=== PATIENT | female | born 1990 | race Caucasian/White ===

== ENCOUNTER 2025-01-19 14:57 | Emergency (ER) | payer OTHER, SELFPAY ==
--- NOTE | ~2025-01-19 | XR_ITS ---
XR tibia fibula LT 2V Ordering provider: Wanda Huff MD History: . left proximal leg pain . Comparison: None. FINDINGS: BONES: Fracture of the distal fibula. Fracture of the posterior malleolus of the left tibia. JOINT SPACES: Normal. SOFT TISSUES: Soft tissue swelling over the medial and lateral malleoli. IMPRESSION: Fracture of the posterior malleolus of the left tibia and the lateral malleolus the fibula. Reviewed, dictated and finalized at location A.
--- NOTE | ~2025-01-19 | XR_ITS ---
EXAM: XR ankle LT min 3V DATE: 01/19/2025 15:15 HISTORY: injury, pain, swelling . COMPARISON: None available. FINDINGS: Medial gutter widening. Oblique nondisplaced fracture of the distal left fibula, extending to the joint line (Yeh type B fracture). Mildly displaced posterior malleolar fracture. Plantar en thesopathy ankle joint effusion. Soft tissue swelling about the ankle. No lytic or blastic lesions. N o erosion or periosteal change. IMPRESSION: . Unstable trimalleolar left ankle injury involving medial ligamentous injury and lateral/posterior oss eous injury. Reviewed, dictated and finalized at location K. IMPRESSION: . Unstable trimalleolar left ankle injury involving medial ligamentous injury and lateral/posterior osseous injury.
[2025-01-19 15:02] VITALS: BP 139/96; PULSE 87; RESP 18; TEMP 36.8; O2SAT 99
[2025-01-19] MEDS: oxyCODONE/ACETAMINOPHEN (*CRX) 5-325 MG TABLET 1 TABLET PO (16:32)
--- NOTE | 2025-01-19 16:37 | ED_ITS ---
HPI - Extremity Injury (Lower) General Chief Complaint: Extremity Injury, Lower Stated Complaint: L ankle Time Seen by Provider: 01/19/25 15:58 Source: patient, RN notes reviewed and old records reviewed Mode of arrival: ambulatory Limitations: no limitations History of Present Illness HPI Narrative: This is a 34 year old female who presents for evaluation of left ankle pain. She states she fell while mowing the grass. She is not sure exactly how she injured her leg but she reports left ankle pain and swelling. She also has pain to left lateral knee. She denies hitting her head. She took ibuprofen prior to her fall. Related Data Allergies Allergy/AdvReac Type Severity Reaction Status Date / Time amoxicillin Allergy Unknown Unknown Verified 01/19/25 14:58 clindamycin Allergy Unknown hives Verified 01/19/25 14:58 Cat Dander Allergy Unknown Unknown Uncoded 01/19/25 14:58 [facility] Past Medical History Medical History (Updated 01/19/25 @ 17:45 by Wanda Huff MD) Patient denies medical problems Surgical History Surgical History (Updated 01/19/25 @ 16:42 by Wanda Huff MD) No pertinent past surgical history Social History Social History (Updated 01/19/25 @ 16:42 by Wanda Huff MD) Smoking status: Never smoker Exam Const: General: no acute distress and alert Orientation/consciousness: patient oriented x3 HENMT: Head: normal to inspection Resp: Effort & Inspection: normal respiratory effort Skin: Other: abrasion to right knee but no swelling Neuro: General: patient oriented x3 and moves all extremities Extrem: Other: left ankle with swelling medial and lateral malleolus. TTP, sensation intact. unable to move foot due to pain and instability; TTP proximal fibula Psych: Mental Status: mental status grossly normal Affect: normal affect Attitude: cooperative Course Consultations Consultation #1: I Spoke with Dr. Wilson . He reviewed patient's images and he agrees with plan to splint and follow up as outpatient. Date: 01/19/25 Time: 16:53 Vital Signs Vital signs: Vital Signs Temperature 98.3 F 01/19/25 15:02 Pulse Rate 87 01/19/25 15:02 Respiratory Rate 18 01/19/25 15:02 Blood Pressure 139/96 H 01/19/25 15:02 Pulse Oximetry 99 01/19/25 15:02 Temperature 98.0 F 01/19/25 18:15 Pulse Rate 83 01/19/25 18:15 Respiratory Rate 16 01/19/25 18:15 Blood Pressure 123/71 01/19/25 18:15 Pulse Oximetry 100 01/19/25 18:15 Procedures Orthopedic Splinting/Casting Injury #1: Splinting/Casting Date: 01/19/25 Splinting/Casting Time: 17:42 Side: left Lower Extremity Injury Location: ankle Splint: customized in ED OCL: stirrup Pre-Procedure Neuro Vascular Exam: normal Post-Procedure Neuro Vascular Exam: normal Other Orthopedic Equipment: crutches MDM - Extremity Injury (Lower) Differential Diagnosis Differential diagnosis: Likely ankle sprain and strain, acute internal derangement of knee and ankle fracture Imaging Data Radiologist's impression: ITS Impressions Ankle X-Ray 01/19/25 15:23 IMPRESSION: . Unstable trimalleolar left ankle injury involving medial ligamentous injury and lateral/posterior osseous injury. Tibia/Fibula X-Ray 01/19/25 16:31 IMPRESSION: Fracture of the posterior malleolus of the left tibia and the lateral malleolus the fibula. Discharge Plan Discharge Clinical Impression: Bimalleolar fracture of left ankle Qualifiers: Encounter type: initial encounter Fracture type: closed Qualified Code(s): S82.842A - Displaced bimalleolar fracture of left lower leg, initial encounter for closed fracture Patient Disposition: Home Condition: Stable Instructions: Ankle Fracture (ED), Crutch Instructions (ED) Additional Instructions: Today you were found to have a fractured ankle . You will need to call Dr. Wilson's office to make an appointment as you likely need to have surgery. Do not bear weight to the left ankle. Elevate leg when possible. Apply ice to reduce swelling Patient Language: Estonian Prescriptions: New oxycodone-acetaminophen [Percocet] 5-325 mg tablet 1 tablet PO Q6H PRN (Reason: pain) Qty: 20 0RF Follow-up/Referrals: Bryon,Nicole Brown MD [Primary Care Provider] - Tahir Wilson MD [Physician] -
--- OUTSIDE RECORDS SUMMARY | 2025-01-19 16:51 | XMS_ITS | Clinical Summary ---
Author Organization [facility] Address [address] [place] [id number] Care Team Providers Care Technical Support Consultant Name Role Phone Unavailable Primary Care Provider Unavailabl e Allergies Active Allergy Reactions Criticality Noted Date Comments Amoxicillin Nausea and Vomiting Low 11/14/2012 Azithromycin Hives High 11/18/2020 Clindamycin Angioedema,Rash High 04/24/2013 Medications norethindrone 1.5 mg-ethinyl estradioL 30 mcg(21)/iron 75 mg(7) tablet Take 1 Tablet by mouth daily. Active QUEtiapine (SEROquel) 25 mg tablet TAKE 1 TABLET BY MOUTH NIGHTLY AT BEDTIME FOR 2 WEEKS THEN MAY INCREASE TO 2 TABS NIGHTLY 09/12/2022 Active Active Problems No known active problems Immunizations Immunization Administration Dates Next Due INFLUENZA VACCINE QUADRIVALENT 6 MOS UP PF IM Family History Medical History Relation Name Comments Cancer Father Hypertension Father Diabetes Mother Relation Name Status Comments Father Mother Social History Tobacco Use Types Packs/Day Years Used Date Smoking Tobacco: Never Smokeless Tobacco: Never Tobacco Cessation:Counseling Given: Not Answered Alcohol Use Standard Drinks/Week Comments Yes 0 (1 standard drink = 0.6 oz pur e alcohol) rarely Comments No Sex and Gender Information Value Date Recorded Sex Assigned at Not on file Legal Sex Female 11:08 AM CDT Gender Identity Not on file Sexual Orientation Not on file Last Filed Vital Signs Vital Sign Reading Time Taken Comments Blood Pressure 106/70 12/04/2022 10:31 AM CDT Pulse 82 12/04/2022 10:31 AM CDT Temperature 36.7 C (98.1 F) 12/04/2022 10:31 AM CDT Respiratory Rate 18 01/21/2021 11:01 AM CDT Oxygen Saturation 98% 12/04/2022 10:31 AM CDT Inhaled Oxygen Concentration - - Weight 81.6 kg (180 lb) 12/04/2022 10:31 AM CDT Height 160 cm (5' 3) 12/04/2022 10:31 AM CDT Body Mass Index 31.89 12/04/2022 10:31 AM CDT Plan of Treatment Health Maintenance Due Date Last Done Comments HPV VACCINES (2 - 3-dose series) 08/05/2007 07/08/20 07 HPV/Cotest (21-29) 12/14/2012 CERVICAL CANCER SCREENING 12/14/2021 HPV/Cotest (30-65) 12/14/2021 PAP SMEAR 12/14/2021 INFLUENZA VACCINE (#1) 2024 , 05/16/2020, 05/14/2019, Additional history exists COVID-19 Vaccine (2023-2 5 season) 2024 11/30/2020, 11/09/2020 DTAP/TDAP/TD VACCINES (4 - T d or Tdap) 01/01/2028 12/31/2017, 07/08/2007, 12/30/1996, Additional history exists HEPATITIS B VACCINES Completed 09/04/2002, 02/09/1997, 01/02/1997 Insurance BLUE ACCESS CHOICE
[2025-01-19 18:15] VITALS: BP 123/71; PULSE 83; RESP 16; TEMP 36.7; O2SAT 100
== END 2025-01-19 18:17 | disposition home or self-care (01) ==
PROVIDERS: Emergency Provider General Practice; PCP Family Medicine
DX: S82.842A Displaced bimalleolar fracture of left lower leg, initial encounter for closed fracture (principal); W18.39XA Other fall on same level, initial encounter; Y93.H2 Activity, gardening and landscaping
CPT/HCPCS: 29515; 73590; 73610; 99284; A9270

== ENCOUNTER 2025-01-26 12:18 | Outpatient (CLI) | payer OTHER, SELFPAY ==
--- NOTE | 2025-01-26 12:46 | ECG_ITS ---
Test Date: 2025-01-26 12:57:15 Measurements Intervals [place] Rate: 84 P: 48 SD: 105 QRS: 6 QRSD: 81 T: -4 QT: 343 QTc: 407 Interpretive Statements SINUS RHYTHM WITH SHORT SD INTERVAL DELAYED PRECORDIAL R/S TRANSITION CONSIDER INFERIOR INFARCT, AGE INDETERMINATE BASELINE ARTIFACT- V4 ABNORMAL ECG No previous ECG available for comparison Electronically Signed On 01-26-2025 13:00:03 CDT by Vineet Serrano D.O.
--- OUTSIDE RECORDS SUMMARY | 2025-01-26 13:17 | XMS_ITS | Encounter Summary ---
Author Organization [facility] Address [address] [place] [address] Care Team Providers Care Clinical Field Specialist Name Role Phone Nicole Slater DO Primary Care Provider [phone] Encounter Details Date Type Department Care Team (Late st Contact Info) Description 06/28/2020 MyChart Message Enc [facility] Family Medicine - [place] [address] [place] [phone] Nicole Slater DO [address] [place] [address] RE: Test Results Social History Tobacco Use Types Packs/Day Years Used Date Smoking Tobacco: Never Smokeless Tobacco: Never Alcohol Use Standard Drinks/Week Comments Never 0 (1 standard drink = 0.6 oz pur e alcohol) AUDIT-C Answer Date Recorded Q1: How often do you have a drink containing alc ohol? Never 01/23/2020 Average Number of Drinks Not on file 020 Frequency of Binge Drinking Not on file 01/11 Comments No Sex and Gender Information Value Date Recorded Sex Assigned at Female 12/16/2024 8:02 AM CDT Legal Sex Female 8:33 PM CDT Gender Identity Female 08/22/2021 5:56 PM EMPLOYMENT APPEALS EXAMINER Sexual Orientation Straight 08/22/2021 5: 56 PM EMPLOYMENT APPEALS EXAMINER documented as of this encounter Plan of Treatment Upcoming Encounters Date Type Department Care Team (Late st Contact Info) Description 01/27/2025 10:00 AM CDT Office Visit [facility] Family Medicine - [place] [address] [facility] [place] [address] Nicole Slater DO [address] [facility] [place] [address] documented as of this encounter Visit Diagnoses Not on filedocumented in this encounter Additional Health Concerns Infection Onset Date Last Indicated Resolved Time COVID-19 Rule Out 06/23/2020 06/23/2020 06/29/2020 2:30 AM EMPLOYMENT APPEALS EXAMINER COVID-19 Confirmed 06/23/2020 06/23/2020 12:35 AM EMPLOYMENT APPEALS EXAMINER COVID-19 Rule Out 08/17/2021 08/17/2021 08/17/2021 12:45 PM EMPLOYMENT APPEALS EXAMINER COVID-19 Rule Out 08/17/2021 08/19/2021 08/19/2021 8:12 PM EMPLOYMENT APPEALS EXAMINER COVID-19 Rule Out 05/15/2023 05/15/2023 05/15/2023 10:24 AM CDT COVID-19 Rule Out 05/15/2023 05/15/2023 05/16/2023 4:07 PM CDT documented as of this encounter Care Teams Clinical Field Specialist Relationship Specialty Start Date End Date Nicole Slater DO [address] [facility] [place] [address] PCP - General 01/05/17 documented as of this encounter
--- OUTSIDE RECORDS SUMMARY | 2025-01-26 13:17 | XMS_ITS | Encounter Summary ---
Author Organization [facility] Address [address] [place] [address] Care Team Providers Care Smelter Operator Name Role Phone Nicole Slater DO Primary Care Provider [phone] Encounter Details Date Type Department Care Team (Late st Contact Info) Description 07/30/2020 MyChart Message Enc [facility] Family Medicine - [place] [address] [place] [phone] Nicole Slater DO [address] [place] [address] RE: Follow Up/Update Social History Tobacco Use Types Packs/Day Years [...] CDT Gender Identity Female 08/22/2021 5:56 PM ROCK LATHER Sexual Orientation Straight 08/22/2021 5: 56 PM ROCK LATHER documented as of this encounter Plan of Treatment Upcoming Encounters Date Type Department Care Team (Late st Contact Info) Description 01/27/2025 10:00 AM CDT Office [facility] Family [facility] - [place] [address] [place], [place] [phone] Nicole Slater DO [address] [place] [address] documented as of this encounter Visit Diagnoses Not on filedocumented in this encounter Additional Health Concerns Infection Onset Date Last Indicated Resolved Time COVID-19 Confirmed 06/23/2020 06/23/2020 12:35 AM ROCK LATHER COVID-19 Rule Out 08/17/2021 08/17/2021 08/17/2021 12:45 PM ROCK LATHER COVID-19 Rule Out 08/17/2021 08/19/2021 08/19/2021 8:12 PM ROCK LATHER COVID-19 Rule Out 05/15/2023 05/15/2023 05/15/2023 10:24 AM CDT COVID-19 Rule Out 05/15/2023 05/15/2023 05/16/2023 4:07 PM CDT documented as of this encounter Care Teams Smelter Operator Relationship Specialty Start Date End Date Nicole Slater DO [address] [place] [address] PCP - General 01/05/17 documented as of this encounter
--- OUTSIDE RECORDS SUMMARY | 2025-01-26 13:17 | XMS_ITS | Clinical Summary ---
Author Organization [facility] Address [address] [place] [address] Care Team Providers Care Linseed Cake Trimmer Name Role Phone Unavailable Primary Care Provider [...]
--- OUTSIDE RECORDS SUMMARY | 2025-01-26 13:17 | XMS_ITS | Encounter Summary ---
Author Organization [facility] Address [address] [place] [address] Care Team Providers Care Clinical Nursing Instructor Name Role Phone Nicole Slater DO Primary Care Provider [phone] Reason for Visit * Reason Onset Date Comments Error 01/23/2025 Encounter Details Date Type Department Care Team (Late st Contact Info) Description 01/23/2025 Telephone [facility] Family Medicine - [place] [address] [place] [phone] Nicole Slater DO [address] [place], [place] [phone] Error Social History Tobacco Use Types Packs/Day Years Used Date Smoking Tobacco: Never Passive Smoke Exposure: Never Smokeless Tobacco: Never Alcohol Use Standard Drinks/Week Comments Yes 0 (1 standard drink = 0.6 oz pur e alcohol) 1 drink per week AUDIT-C Answer Date Recorded Q1: How often do you have a drink containing alc ohol? Never 01/23/2020 Average Number of Drinks Not on file 020 Frequency of Binge Drinking Not on file 01/11 PHQ-2 Answer Date Recorded Patient Health Questionnaire-2 Score 0 12/16/2024 Comments No Sex and Gender Information Value Date Recorded Sex Assigned at Female 12/16/2024 8:02 AM CDT Legal Sex Female 8:33 PM CDT Gender Identity Female 08/22/2021 5:56 PM MAINSPRING REVERSE WINDER Sexual Orientation Straight 08/22/2021 5: 56 PM MAINSPRING REVERSE WINDER documented as of this encounter Plan of Treatment Upcoming Encounters Date Type Department Care Team (Late st Contact Info) Description 01/27/2025 10:00 AM CDT Office Visit [facility] Family Medicine - [place] [address] [place] [phone] Nicole Slater DO [address] [place] [address] documented as of this encounter Visit Diagnoses Not on filedocumented in this encounter Additional Health Concerns Assessment Noted Time PHQ-9 Depression Total Score: 22 023 4:26 PM MAINSPRING REVERSE WINDER documented as of this encounter Care Teams Clinical Nursing Instructor Relationship Specialty Start Date End Date Nicole Slater DO [address] [place] [address] PCP - General 01/05/17 documented as of this encounter
--- OUTSIDE RECORDS SUMMARY | 2025-01-26 13:18 | XMS_ITS | Encounter Summary ---
Author Organization [facility] Address [address] [place] [address] Care Team Providers Care Home Health Administrator Name Role Phone Nicole Slater DO Primary Care Provider [phone] Encounter Details Date Type Department Care Team (Late st Contact Info) Description 07/12/2022 MyChart Message Enc [facility] Family Medicine - [place] [address] [place] [address] Nicole Slater DO [address] [place], [place] [phone] Seroquel Social History Tobacco Use Types Packs/Day Years [...] on file 01/11 PHQ-2 Answer Date Recorded PHQ-2 Score - If the patient scores above 3, please move on to questions 3-9 0 10/20/2021 Comments No Sex and Gender Information Value Date Recorded Sex Assigned at Female 12/16/2024 8:02 AM CDT Legal Sex Female 8:33 PM CDT Gender Identity Female 08/22/2021 5:56 PM GLOVE PARTS INSPECTOR Sexual Orientation Straight 08/22/2021 5: 56 PM GLOVE PARTS INSPECTOR documented as of this encounter Plan of Treatment Upcoming Encounters Date Type Department Care Team (Late st Contact Info) Description 01/27/2025 10:00 AM CDT Office Visit [facility] Family Medicine - [place] [address] [place] [address] Nicole Slater DO [address] [place] [address] documented as of this encounter Visit Diagnoses Not on filedocumented in this encounter Additional Health Concerns Infection Onset Date Last Indicated Resolved Time COVID-19 Rule Out 05/15/2023 05/15/2023 05/15/2023 10:24 AM CDT COVID-19 Rule Out 05/15/2023 05/15/2023 05/16/2023 4:07 PM CDT Assessment Noted Time PHQ-9 Depression Total Score: 0 10/21/19 22 3:52 PM GLOVE PARTS INSPECTOR documented as of this encounter Care Teams Home Health Administrator Relationship Specialty Start Date End Date Nicole Slater DO [address] [place] [address] PCP - General 01/05/17 documented as of this encounter
--- OUTSIDE RECORDS SUMMARY | 2025-01-26 13:18 | XMS_ITS | Encounter Summary ---
Author Organization [facility] Address [address] [place] [address] Care Team Providers Care Casing In Line Setter Name Role Phone Nicole Slater DO Primary Care Provider [phone] Encounter Details Date Type Department Care Team (Late st Contact Info) Description 04/04/2022 MyChart Message Enc [facility] Family Medicine - [place] [address] [place] [phone] Nicole Slater DO [address] [place], [place] [phone] Weird painful/swollen/ ear bumps Social History Tobacco Use Types Packs/Day Years [...] CDT Gender Identity Female 08/22/2021 5:56 PM FISHING GAME WARDEN Sexual Orientation Straight 08/22/2021 5: 56 PM FISHING GAME WARDEN documented as of this encounter Plan of Treatment Upcoming Encounters Date Type Department Care Team (Late st Contact Info) Description 01/27/2025 10:00 AM CDT Office Visit [facility] Family Medicine - [place] [address] [place] [address] Nicole Slater DO [address] [place] [address] documented as of this encounter Visit Diagnoses Not on filedocumented in this encounter Additional Health Concerns Infection Onset Date Last Indicated Resolved Time COVID-19 Rule Out 05/15/2023 05/15/2023 05/15/2023 10:24 AM CDT COVID-19 Rule Out 05/15/2023 05/15/2023 05/16/2023 4:07 PM CDT Assessment Noted Time PHQ-9 Depression Total Score: 0 10/21/19 22 3:52 PM FISHING GAME WARDEN documented as of this encounter Care Teams Casing In Line Setter Relationship Specialty Start Date End Date Nicole Slater DO [address] [place] [address] PCP - General 01/05/17 documented as of this encounter
--- OUTSIDE RECORDS SUMMARY | 2025-01-26 13:18 | XMS_ITS | Clinical Summary ---
Author Organization [facility] Address [facility] [place] [address] Care Team Providers Care Environmental Service Aide Name Role Phone Nicole Slater Primary Care Provider Allergies Active Allergy Reactions Criticality Noted Date Comments Amoxicillin Unknown 11/14/2012 Azithromycin Hives High 11/18/2020 Clindamycin Angioedema,Rash Low 04/24/2013 Penicillins Unknown 08/04/2024 Medications famotidine (PEPCID) 40 MG tabletIndication s:Less than 8 weeks gestation of (HHS/HCC),Pregna ncy related nausea, antepartum (HHS/HCC) Take 1 tablet (40 mg total) by mouth 2 (two) times daily. 60 tablet 1 4 Active nystatin (MYCOSTATIN) creamIndications :Vaginal candidiasis Apply topically 2 (two) times daily. 30 g 1 5 Active Active Problems Problem Noted Date Diagnosed Date Painful defecation 11/01/2021 Overview (11/01/2021): Added automatically from request for surgery [id number] Abdominal pain, unspecified abdominal location 0 11/01/2021 Overview (11/01/2021): Added automatically from request for surgery [id number] Hematochezia 11/01/2021 Overview (11/01/2021): Added automatically from request for surgery [id number] Depression 08/13/2020 Anxiety 08/13/2020 Reactive hypoglycemia 11/09/2014 Encounters Date Type Department Care Team Description 01/23/2025 Telephone [facility] [address], [address] [place] [address] Nicole Slater DO Error 01/19/2025 Scan HEALTH INFO SRVCS Scanned, Doc Med Group Image (SCAN) 12/16/2024 8:00 AM CDT Office Visit [facility] [address], [address] [place] [phone] Nicole Slater DO Vaginal Problem (Patient here today for vaginal swelling, discomfort, discharge and itching x 1 week. ) 12/16/2024 Travel from Last 3 Months Immunizations Immunization Administration Dates Next Due Dtap (Generic) 12/30/1996 Dtp (Generic) 02/18/1992 Flucelvax 6 Months+ (Prefill ed Syringe) 05/16/2020,05/20/2018 Fluzone 6 Months+ Quad (0.5 mL Prefilled Syringe) 05/14/2019 HPV 07/08/2007 HPV GARDASIL 9-VALENT 05/01/2024 Hepatitis A (Generic) 12/31/2017 Hepatitis B (Generic: Adult) 09/04/2002,02/09/19 97,01/02/1997 Hib Vaccine, Prp-Omp 09/26/1993,03/30/19 93,08/20/1992,02/17 Influenza (Generic) 06/11/2009 Influenza Adult (Generic) 04/27/2022,,05/25/2017,05/25 MMR (Generic) 12/30/1996,09/26/1993 Meningococcal Vac A,C,Y,W-135 Sc 06/29/2016 Opv 12/30/1996, 4,03/30/1993,08/20,02/18/1992 PFIZER COVID-19 (ORIGINAL FO RMULATION, PURPLE CAP) mRNA, LNP-S, PF, 30 MCG/0.3 ML DOSE 07/10/2021,11/30/2020,11/09/2020 PFIZER COVID-19 BIVALENT (12 +) mRNA, LNP-S, PF, 30 MCG/0.3 ML DOSE 08/21/2022 Tdap (Generic) 12/31/2017,07/08/2007,02/18/1992 Family History Medical History Relation Comments Cancer Father laryngotomy Father Diabetes Mother Hypertension Mother Relation Status Comments Father Alive Mother Alive Social History Tobacco Use Types Packs/Day Years Used Date Smoking Tobacco: Never Passive Smoke Exposure: Never Smokeless Tobacco: Never Tobacco Cessation:Counseling Given: No Alcohol Use Standard Drinks/Week Comments Yes 0 [...] CDT Gender Identity Female 08/22/2021 5:56 PM ETCHER APPRENTICE PHOTOENGRAVING Sexual Orientation Straight 08/22/2021 5: 56 PM ETCHER APPRENTICE PHOTOENGRAVING Last Filed Vital Signs Vital Sign Reading Time Taken Comments Blood Pressure 118/80 12/16/2024 8:00 AM CDT Pulse 89 12/16/2024 8:00 AM CDT Temperature 36.7 C (98.1 F) 12/16/2024 8:00 AM CDT Respiratory Rate 18 12/16/2024 8:00 AM CDT Oxygen Saturation 96% 12/16/2024 8:00 AM CDT Inhaled Oxygen Concentration - - Weight 78.2 kg (172 lb 6.4 oz) 12/16/2024 8:00 A M CDT Height 161.3 cm (5' 3.5) 08/21/2022 3:41 PM ETCHER APPRENTICE PHOTOENGRAVING Body Mass Index 30.06 08/21/2022 3:41 PM ETCHER APPRENTICE PHOTOENGRAVING Plan of Treatment Upcoming Encounters Date Type Department Care Team (Late st Contact Info) Description 01/27/2025 10:00 AM CDT Office Visit [facility] Family [facility] - [place] [address], [address] [place] [address] [facility] [address] [place] [address] Health Maintenance Due Date Last Done Comments Cervical Cancer Screening Pap Smear (Age 30 to 64) Every 3 Years 1991 Cervical Cancer Screening Pap with HPV Testing (Age 30 to 64) Every 5 Years 12/14/2021 Cervical Cancer Screening with HPV 12/14/2021 Annual Physical 08/21/2023 08/21/2022 COVID-19 Vaccine (5 - season) 2024 08/21/2022, 07/10/2021, 11/30/2020, Additional history exists HPV Vaccines (3 - 3-dose series) 07/24/2024 05/01/2024, 07/08/2007 DTaP, Tdap and Td Vaccines (5 - Td or Tdap) 01/01/2028 12/31/2017, 07/08/2007, 12/30/1996, Additional history exists Hepatitis B Vaccines Completed 09/04/2002, 02/09/1997, 01/02/1997 Meningococcal Vaccine Aged Out 06/29/2016 No lynette shila eligible based on patient's age to complete this topic Hepatitis C Completed 08/25/2022 PHQ-2 (Physician [place]) Completed 12/16/2024 Meningococcal B Vaccine Aged Out No l onger eligible based on patient's age to complete this topic Pneumococcal Vaccine: Pediatrics (0 to 5 Years) and At-Risk Patients (6 to 49 Years) Aged Out No longer eligible based on patient's age to complete this topic RSV Immunizations Under 20 Months Aged Out No longer eligible based on patient's age to complete this topic Procedures Procedure Name Priority Date/Time Associated Diagnosis Comments IMAGE GENERIC 01/19/2025 IMAGE GENERIC 01/19/2025 IMAGE GENERIC 01/19/2025 HEPATITIS C ANTIBODY Routine 08/25/2022 7:21 AM ETCHER APPRENTICE PHOTOENGRAVING Annual physical exam Need for hepatitis C screening test from Last 3 Months or Most Recently Relevant to Health Maintenance Results * IMAGE GENERIC (01/19/2025) Only the most recent of3 resultswithin the time period is included. Anatomical Region Laterality Modality Other 01/19/2025 us [facility] Scanned SCANNING Final Resu lt * HEPATITIS C ANTIBODY (08/25/2022 7:21 AM ETCHER APPRENTICE PHOTOENGRAVING) HEPATITIS C AB NON-REACTI VE NON-REACT SIMIN 08/25/2022 7:43 PM ETCHER APPRENTICE PHOTOENGRAVING [facility] Comment: ANTIBODIES TO HCV NOT DETECTED. DOES NOT EXCLUDE THE POSSIBILITY OF EXPOSURE TO HCV. 08/25/2022 7:21 AM ETCHER APPRENTICE PHOTOENGRAVING Nicole Slater DO LABORATORY Final Result [facility] [address] [place] [address], [id number] from Last 3 Months or Most Recently Relevant to Health Maintenance Insurance [facility] Care Teams Environmental Service Aide Relationship Specialty Start Date End Date Nicole Slater DO [address] '[place] [address] PCP - General 01/05/17
[2025-01-26 13:37] LABS: Hematocrit 46.5 % (37.0-47.0); Hemoglobin 15.2 g/dL (12.0-15.0); Mean Corpuscular HGB Conc 32.7 g/dl (32-36); Mean Corpuscular Volume 85.8 fl (80-100); Platelet Count Result 356 k/mm3 (150-375); Red Blood Count 5.42 M/mm3 (4.2-5.4); White Blood Count 9.6 K/mm3 (4.5-10.0)
[2025-01-26 13:52] LABS: Alanine Aminotransferase 45 U/L (6-35); Albumin Level 4.4 g/dL (3.5-5.1); Alkaline Phosphatase 75 U/L (38-126); Aspartate Amino Transferase 37 U/L (14-36); Bilirubin,Total 0.5 mg/dL (0.2-1.3); Blood Urea Nitrogen 9 mg/dL (7-17); CRP 0.7 mg/dL (<1.0); Calcium 9.4 mg/dL (8.4-10.2); Carbon Dioxide 23 mmol/L (22-30); Chloride 106 mmol/L (98-107); Estimated Glomerular Filt Rate > 60; Glucose 91 mg/dL (65-110); Potassium 3.9 mmol/L (3.4-5.0); Total Protein 8.1 g/dL (6.3-8.2)
[2025-01-26 15:22] LABS: Anion Gap 12 mmol/L (4-12); Sodium 141 mmol/L (137-145)
== END 2025-01-26 12:19 | disposition home or self-care (01) ==
LOC: ANHLAB 12:26
PROVIDERS: PCP Family Medicine; Visit Provider Orthopaedic Surgery
DX: Z01.818 Encounter for other preprocedural examination (principal); R94.31 Abnormal electrocardiogram [ECG] [EKG]
CPT/HCPCS: 36415; 80053; 85027; 86140; 93005

== ENCOUNTER 2025-01-29 00:54 | Day surgery (SDC) | payer OTHER, SELFPAY ==
--- NOTE | 2025-01-26 15:36 | PC.NURSE ---
Report to the Outpatient Waiting Room, entrance under the green pavilion located off [facility], at time _0800_ on date _[id number]_. Planned Procedure Time: _1000_.? Time changes happen often and if your time is changed the preop area will call you the afternoon before. - You and your visitor will be asked to self-screen and do not enter if you have any COVID symptoms. Please call surgeon if you need to reschedule. - A mask is optional within the hospital at this time. Patients may have clear liquids (water, carbonated beverages, clear teas, apple juice) until 3 hours prior to surgery with a maximum of 20 ounces. - No food from midnight until time of surgery and no smoking, or chewing tobacco (or any form of nicotine). No chewing gum, candy or mints. Take only the following medications with a SIP of water on the morning of surgery: ___Percocet if needed. DO NOT STOP ANY OF YOUR OTHER PRESCRIPTION MEDICATIONS PRIOR TO SURGERY EXCEPT THE FOLLOWING Hold all vitamins and supplements for 3 days per anesthesiologist. Medications to discontinue per physician Date to take last dose___Stop now.____ Please no make-up, nail mexican, hairspray, perfume, deodorant, or body powder the day of surgery.? No jewelry (including any body piercings) or valuables the day of surgery, leave them at home.? Please take a shower or bath the night before, or the morning of, surgery with an antibacterial soap.? Wear comfortable, loose fitting clothing.? - Jewelry must be removed prior to entering the operating room.? Rings and piercings that are not removed may be cut off. - The hospital will not accept responsibility for valuables.? - Please leave all valuables, including medications, at home the day of surgery. If you are going home after surgery, a licensed wheat combine driver must drive you home.? - NO public transportation without another adult if you receive anesthesia. - We recommend that an adult stay with you for 24 hours following discharge. - We also recommend that you do not drive, make important decision, drink alcoholic beverages, or take any drugs that were not prescribed by your health care provider for at least 24 hours after your discharge time. Follow any additional instructions given to you from your surgeon. Telephone instructions given to __Kelly___and asked if any additional questions and then verbalized understanding. Patient advised to call surgeon office or pre surgery nurse liaison [phone] if any additional questions.
[2025-01-26 15:39] VITALS: BMI 29.7
[2025-01-29] VITALS (10 sets, daily range): BP systolic 121–146; BP diastolic 72–88; PULSE 60–96; RESP 12–18; TEMP 36.8–37.2; O2SAT 95–100
--- NOTE | ~2025-01-29 | XR_ITS ---
EXAMINATION: XR surgery orthopedic DATE: 01/29/2025 09:51 INDICATION: Left ankle ORIF TECHNIQUE: 2 fluoroscopic images in AP and lateral projections. obtained during procedure performed meaghan Wilson. Radiologist was not present for the imaging or procedure. The amount of fluoroscopy ti me used during this procedure was 0.4 minutes. Total DAP was 0.213 mGym^2. COMPARISON: 01/29/2025 FINDINGS: Interval open reduction internal fixation of the oblique fracture of the distal left fibula with inte rfragmentary screw and lateral plate and screws. A previously seen posterior malleolus fracture of th e distal tibia is obscured by the lateral plate and screws on the lateral projection but remains esse ntially nondisplaced. Previously seen widening of the medial clear space is been reduced with a now c ongruent ankle mortise. Small amount of postoperative lucent gas at the posterior recess of the ankle joint. No new fractures identified. Joint spaces are relatively preserved. IMPRESSION: 1. Near-anatomic alignment post open reduction and internal fixation of the distal fibular fracture. 2. Posterior malleolus fracture seen on prior radiographs is obscured on the current study but appear s to remain nondisplaced and without internal fixation. 3. Interval reduction of the prostate widened medial clear space with now congruent ankle mortise. Reviewed, dictated and finalized at location B. IMPRESSION: 1. Near-anatomic alignment post open reduction and internal fixation of the dis ynes fibular fracture. 2. Posterior malleolus fracture seen on prior radiographs is obscured on the cu rrent study but appears to remain nondisplaced and without internal fixation. 3. Interval reduction of the prostate widened medial clear space with now congr uent ankle mortise.
--- OUTSIDE RECORDS SUMMARY | 2025-01-29 00:57 | XMS_ITS | Clinical Summary ---
Author Organization [facility] Address [address] [place] [id number] Care Team Providers Care Material Reclaimer Name Role Phone Unavailable Primary Care Provider [...]
--- OUTSIDE RECORDS SUMMARY | 2025-01-29 00:57 | XMS_ITS | Encounter Summary ---
Author Organization [facility] Address [address] [place] [address] Care Team Providers Care Sales And Marketing Agent Name Role Phone Nicole Slater DO Primary Care Provider [phone] Encounter Details Date Type Department Care Team (Late st Contact Info) Description 04/04/2022 MyChart Message Enc [facility] Family Medicine - [place] [address], [address] [place] [address] Nicole Slater DO [address] [place], [place] [id number] Weird painful/swollen/ ear bumps Social History Tobacco [...] CDT Gender Identity Female 08/22/2021 5:56 PM COMPUTATIONAL CHEMIST Sexual Orientation Straight 08/22/2021 5: 56 PM COMPUTATIONAL CHEMIST documented as of this encounter Plan of Treatment Not on file documented as of this encounter Visit Diagnoses Not on filedocumented in this encounter Additional Health Concerns Infection Onset Date Last Indicated Resolved Time COVID-19 Rule Out 05/15/2023 05/15/2023 05/15/2023 10:24 AM CDT COVID-19 Rule Out 05/15/2023 05/15/2023 05/16/2023 4:07 PM CDT Assessment Noted Time PHQ-9 Depression Total Score: 0 10/21/19 3:52 PM COMPUTATIONAL CHEMIST documented as of this encounter Care Teams Sales And Marketing Agent Relationship Specialty Start Date End Date Nicole Slater DO [address] '[place] [address] PCP - General 01/05/17 documented as of this encounter
--- OUTSIDE RECORDS SUMMARY | 2025-01-29 00:57 | XMS_ITS | Clinical Summary ---
Author Organization [facility] Address [facility] [place] [address] Care Team Providers Care Journeyman Powerhouse Operator Name Role Phone Nicole Slater Primary Care [...] times daily. 30 g 1 5 Active oxyCODONE-acetam inophen (PERCOCET) 5-325 MG tablet Take 1 tablet by mouth every 6 (six) hours as needed. 5 Active oxyCODONE-acetam inophen (PERCOCET) 5-325 MG tabletIndication s:Acute Pain < 7 Day Supply Take 1-2 tablets by mouth every 6 (six) hours as needed for Pain. Indications: Acute Pain < 7 Day Supply 28 tablet 5 Active Active Problems Problem Noted Date Diagnosed Date Painful defecation 11/01/2021 Overview (11/01/2021): Added automatically from request for surgery [id number] Abdominal pain, unspecified abdominal location 0 11/01/2021 Overview (11/01/2021): Added automatically from request for surgery [id number] Hematochezia 11/01/2021 Overview (11/01/2021): Added automatically from request for surgery [id number] Depression 08/13/2020 Anxiety 08/13/2020 Reactive hypoglycemia 11/09/2014 Encounters Date Type Department Care Team Description 01/27/2025 10:00 AM CDT Office Visit [facility] [address], [address] [place] [phone] Nicole Slater, Follow Up (Patient here today to follow up left broken ankle. Injury happened 01/19/2025.) 01/27/2025 Travel 01/26/2025 Scan AiCuris SRVCS Scanned, Doc Med [facility] (SCAN) 01/23/2025 Telephone [facility] [address], [address] [place] [phone] Nicole Slater, Error 01/19/2025 Scan HEALTH App[employer] SRVCS Scanned, Doc Med [facility] Image (SCAN) 12/16/2024 8:00 AM CDT Office Visit [facility] [address], [address] [place] [phone] Nicole Slater, DO Vaginal Problem (Patient here today for [...] No Alcohol Use Standard Drinks/Week Comments Yes 1 (1 standard drink = 0.6 oz pur [...] CDT Gender Identity Female 08/22/2021 5:56 PM KEEL PRESS OPERATOR Sexual Orientation Straight 08/22/2021 5: 56 PM KEEL PRESS OPERATOR Last Filed Vital Signs Vital Sign Reading Time Taken Comments Blood Pressure 130/82 01/27/2025 9:52 AM CDT Pulse 92 01/27/2025 9:52 AM CDT Temperature 36.9 C (98.5 F) 01/27/2025 9:52 AM CDT Respiratory Rate 18 01/27/2025 9:52 AM CDT Oxygen Saturation 97% 01/27/2025 9:52 AM CDT Inhaled Oxygen Concentration - - Weight 78.2 kg (172 lb 6.4 oz) 12/16/2024 8:00 A M CDT Height 161.3 cm (5' 3.5) 08/21/2022 3:41 PM KEEL PRESS OPERATOR Body Mass Index 30.06 08/21/2022 3:41 PM KEEL PRESS OPERATOR Plan of Treatment Health Maintenance Due Date Last Done Comments Cervical Cancer Screening Pap Smear (Age 30 to 64) Every 3 Years 1991 Cervical Cancer Screening Pap with HPV Testing (Age 30 to 64) Every 5 Years 12/14/2021 Cervical Cancer Screening with HPV 12/14/2021 Annual Physical 08/21/2023 08/21/2022 COVID-19 Vaccine ( - season) 2024 08/21/2022, 07/10/2021, 11/30/2020, Additional [...] topic Hepatitis C Completed 08/25/2022 PHQ-2 (Physician [place]) Completed 12/16/2024 Meningococcal B Vaccine Aged Out [...] Procedure Name Priority Date/Time Associated Diagnosis Comments OUTSIDE LAB (SCAN ORDER) 01/26/2025 IMAGE GENERIC 01/19/2025 IMAGE GENERIC 01/19/2025 IMAGE GENERIC 01/19/2025 HEPATITIS C ANTIBODY Routine 08/25/2022 7:21 AM KEEL PRESS OPERATOR Annual physical exam Need for hepatitis C screening test from Last 3 Months or Most Recently Relevant to Health Maintenance Results * OUTSIDE LAB (SCAN ORDER) (01/26/2025) 01/26/2025 [employer] [facility] Scanned SCANNING Final Resu lt * IMAGE GENERIC (01/19/2025) Only the most recent of3 resultswithin the time period is included. Anatomical Region Laterality Modality Other 01/19/2025 [employer] [facility] Scanned SCANNING Final Resu lt * HEPATITIS C ANTIBODY (08/25/2022 7:21 AM KEEL PRESS OPERATOR) HEPATITIS C AB NON-REACTI VE NON-REACT SIMIN 08/25/2022 7:43 PM KEEL PRESS OPERATOR [facility] Comment: ANTIBODIES TO HCV NOT DETECTED. DOES NOT EXCLUDE THE POSSIBILITY OF EXPOSURE TO HCV. 08/25/2022 7:21 AM KEEL PRESS OPERATOR Nicole Slater DO LABORATORY Final Result [facility] [address] [place] [address], [id number] from Last 3 Months or Most Recently Relevant to Health Maintenance Insurance [facility] Care Teams Journeyman Powerhouse Operator Relationship Specialty Start Date End Date Nicole Slater DO [address] [place] [address] PCP - General 01/05/17
--- OUTSIDE RECORDS SUMMARY | 2025-01-29 00:57 | XMS_ITS | Encounter Summary ---
Author Organization [facility] Address [address] [place] [address] Care Team Providers Care Nursing Teacher Name Role Phone Nicole Slater DO Primary Care Provider [phone] Reason for Visit * Reason Onset Date Comments Error 01/23/2025 Encounter Details Date Type Department Care Team (Late st Contact Info) Description 01/23/2025 Telephone [facility] Family Medicine - [place] [address] [place] [phone] Nicole Slater DO [address] [place], [place] [id number] Error Social History Tobacco Use Types Packs/Day [...] CDT Gender Identity Female 08/22/2021 5:56 PM HEALTH ADVISOR Sexual Orientation Straight 08/22/2021 5: 56 PM HEALTH ADVISOR documented as of this encounter Plan of Treatment Not on file documented as of this encounter Visit Diagnoses Not on filedocumented in this encounter Additional Health Concerns Assessment Noted Time PHQ-9 Depression Total Score: 22 023 4:26 PM HEALTH ADVISOR documented as of this encounter Care Teams Nursing Teacher Relationship Specialty Start Date End Date Nicole Slater DO [address] '[place] [address] PCP - General 01/05/17 documented as of this encounter
--- OUTSIDE RECORDS SUMMARY | 2025-01-29 00:57 | XMS_ITS | Encounter Summary ---
Author Organization [facility] Address [address] [place] [address] Care Team Providers Care Senior Analytic Consultant Name Role Phone Nicole Slater DO Primary Care Provider [phone] Encounter Details Date Type Department Care Team (Late st Contact Info) Description 07/30/[address] [facility] Family Medicine - [place] [address] [place] [phone] Nicole Slater DO [address] [place] [address] RE: Follow Up/Update Social History Tobacco Use [...] CDT Gender Identity Female 08/22/2021 5:56 PM STRATEGIC DEVELOPMENT MANAGER Sexual Orientation Straight 08/22/2021 5: 56 PM STRATEGIC DEVELOPMENT MANAGER documented as of this encounter Plan of Treatment Not on file documented as of this encounter Visit Diagnoses Not on filedocumented in this encounter Additional Health Concerns Infection Onset Date Last Indicated Resolved Time COVID-19 Confirmed 06/23/2020 06/23/2020 12:35 AM STRATEGIC DEVELOPMENT MANAGER COVID-19 Rule Out 08/17/2021 08/17/2021 08/17/2021 12:45 PM STRATEGIC DEVELOPMENT MANAGER COVID-19 Rule Out 08/17/2021 08/19/2021 08/19/2021 8:12 PM STRATEGIC DEVELOPMENT MANAGER COVID-19 Rule Out 05/15/2023 05/15/2023 05/15/2023 10:24 AM CDT COVID-19 Rule Out 05/15/2023 05/15/2023 05/16/2023 4:07 PM CDT documented as of this encounter Care Teams Senior Analytic Consultant Relationship Specialty Start Date End Date Nicole Slater DO [address] [place] [address] PCP - General 01/05/17 documented as of this encounter
--- OUTSIDE RECORDS SUMMARY | 2025-01-29 00:57 | XMS_ITS | Encounter Summary ---
Author Organization [facility] Address [address] [place] [address] Care Team Providers Care Glaze Handler Name Role Phone Nicole Slater DO Primary Care Provider [phone] Encounter Details Date Type Department Care Team (Late st Contact Info) Description 06/28/2020 MyChart Message Enc [facility] Family Medicine - [place] [address], [address] [place] [phone] Nicole Slater DO [address] [place] [address] RE: Test Results Social History Tobacco Use [...] CDT Gender Identity Female 08/22/2021 5:56 PM FOOD SERVICE SPECIALIST Sexual Orientation Straight 08/22/2021 5: 56 PM FOOD SERVICE SPECIALIST documented as of this encounter Plan of Treatment Not on file documented as of this encounter Visit Diagnoses Not on filedocumented in this encounter Additional Health Concerns Infection Onset Date Last Indicated Resolved Time COVID-19 Rule Out 06/23/2020 06/23/2020 06/29/2020 2:30 AM FOOD SERVICE SPECIALIST COVID-19 Confirmed 06/23/2020 06/23/2020 12:35 AM FOOD SERVICE SPECIALIST COVID-19 Rule Out 08/17/2021 08/17/2021 08/17/2021 12:45 PM FOOD SERVICE SPECIALIST COVID-19 Rule Out 08/17/2021 08/19/2021 08/19/2021 8:12 PM FOOD SERVICE SPECIALIST COVID-19 Rule Out 05/15/2023 05/15/2023 05/15/2023 10:24 AM CDT COVID-19 Rule Out 05/15/2023 05/15/2023 05/16/2023 4:07 PM CDT documented as of this encounter Care Teams Glaze Handler Relationship Specialty Start Date End Date Nicole Slater DO [address] '[place] [address] PCP - General 01/05/17 documented as of this encounter
--- NOTE | 2025-01-29 07:32 | WPDANESEPPF ---
Anes - Initial Pre Proc Eval Procedure: Operation Date: 01/29/25 10:30 Proposed Procedures p Open Reduction Internal Fixation Left Ankle - Tahir Wilson MD Date/Time: 01/29/25 07:32 Surgeon: Tahir Wilson MD Pre Op Diagnosis: Lt Ankle Fx Patient Data Age: 34 Gender: F Height: 1.63 m Weight: 78.6 kg Allergies Allergy/AdvReac Type Severity Reaction Status Date / Time amoxicillin Allergy Unknown Unknown Verified 01/26/25 15:38 clindamycin Allergy Unknown hives Verified 01/26/25 15:38 Cat Dander Allergy Unknown Unknown Uncoded 01/26/25 15:38 Home Medications ?Medication ?Instructions ?Recorded ?Confirmed ?Type oxycodone-acetaminophen 5 mg-325 1 tablet PO Q6H PRN pain #20 tabs 01/19/25 01/26/25 Rx mg tablet (Percocet) multivitamin (Daily Multi-Vitamin 1 tablet PO DAILY 01/26/25 01/26/25 History tablet) Patient hx anesthesia problems: none Family hx anesthesia problems: none Results Review: All pre-operative results and documents have been reviewed as part of the pre-operative evaluation. [facility] Past Medical History Medical History (Updated 01/28/25 @ 09:27 by Dewayne Hooker DO) Depression Anxiety Patient denies medical problems Surgical History Surgical History (Updated 01/19/25 @ 16:42 by Wanda Huff MD) No pertinent past surgical history Social History Social History (Updated 01/19/25 @ 16:42 by Wanda Huff MD) Smoking status: Never smoker Substance use type: marijuana Other substance usage details: Daily Living arrangements: with family Spiritual care concerns: No Anes - Eval Final PreProcedure Day of Procedure 01/29/25 07:32 Patient weight: overweight Heart: regular rate and rhythm Lungs: clear to auscultation Airway: Mallampati scale class II Neurological: alert and oriented Last oral intake: >/= 8 hours ASA classification: III Emergent: no Anesthetic plan: proceed Anesthesia type and monitoring: general LMA and standard monitoring Results Review: All pre-operative results and documents have been reviewed as part of the pre-operative evaluation. Informed Consent: The patient's anesthetic plan and its attendant risks and benefits were discussed with the patient/family/POA. Questions were solicited and answers provided to the satisfaction of the patient/family/POA.
[2025-01-29] MEDS: LACTATED RINGERS 1,000 ML 30 ML IV CONT ×2 (08:00→09:41)
[2025-01-29] MEDS: ACETAMINOPHEN 500 MG TABLET 1000 MG PO (08:10)
[2025-01-29] MEDS: KETOROLAC 15 MG/ML VIAL (*BKC) IV PUSH (08:10)
[2025-01-29] MEDS: VANCOMYCIN 1,250 MG/NS 250 ML 1,250 MG/250 ML BAG 166.67 MG IVPB (08:21)
[2025-01-29] MEDS: ceFAZolin 2 GM/D5W 50 ML 2 GM/50 ML BAG IVPB (08:21)
[2025-01-29 08:27] LABS: BEDSIDEPREGUCG Negative (Negative)
[2025-01-29] MEDS: LIDO 1%/EPINEPHRINE 1:100,000 20 ML VIAL 30 ML INFILTRATE (09:00)
--- NOTE | 2025-01-29 09:28 | WPDHPUPDATE1 ---
History and Physical Update Update Date/Time: 01/29/25 09:28 History and Physical has been reviewed, including an updated exam of the patient. There are NO changes in the patient's condition. Risks, benefits, and alternatives have been discussed and questions answered. Patient agrees to proceed with procedure. Plan Left ankle orif
--- NOTE | 2025-01-29 09:28 | PM.IMHP ---
H&P: HPI History of Present Illness Date/Time: 01/29/25 09:28 Chief Complaint: Left Ankle Fracture after fall at home Review of Systems Review of Systems: All systems reviewed & are unremarkable except as noted in HPI and below Constitutional: Constitutional: Reports as per HPI [facility] Past Medical History Medical History (Updated 01/29/25 @ 09:30 by Tahir Wilson MD) Depression Anxiety Patient denies medical problems Surgical History Surgical History (Updated 01/19/25 @ 16:42 by Wanda Huff MD) No pertinent past surgical history Social History Social History (Updated 01/19/25 @ 16:42 by Wanda Huff MD) Smoking status: Never smoker Substance use type: marijuana Other substance usage details: Daily Living arrangements: with family Spiritual care concerns: No Meds Home Medications and Allergies Home Medications ?Medication ?Instructions ?Recorded ?Confirmed ?Type oxycodone-acetaminophen 5 mg-325 1 tablet PO Q6H PRN pain #20 tabs 01/19/25 01/29/25 Rx mg tablet (Percocet) multivitamin (Daily Multi-Vitamin 1 tablet PO DAILY 01/26/25 01/26/25 History tablet) Allergies Allergy/AdvReac Type Severity Reaction Status Date / Time amoxicillin Allergy Unknown Unknown Verified 01/29/25 08:30 clindamycin Allergy Unknown hives Verified 01/29/25 08:30 Cat Dander Allergy Unknown Unknown Uncoded 01/26/25 15:38 Vital Signs Vital Signs - 24 hr 01/29/25 07:40 Temperature 37.2 C Pulse Rate 96 Respiratory Rate 16 Blood Pressure 130/88 Pulse Oximetry 99 Exam Narrative: Left ankle in posterior splint nvi Assessment and Plan Assessment and plan (1) Ankle fracture, left: Code(s): S82.892A - Other fracture of left lower leg, initial encounter for closed fracture Status: Acute Plan left ankle fracture, plan orif
--- NOTE | 2025-01-29 10:08 | W.PM.PROC2 ---
Procedure Note - Detailed Date of Procedure 01/29/25 Pre-op Diagnosis Left Ankle unstable bimalleolar fracture Post-op Diagnosis Same Procedure Performed 1. Left Ankle Bimalleolar Fracture 2. Left Ankle Posterior Splint Application 3. Left Ankle Fluoroscopy Surgeon Tahir Wilson MD Anesthesia General Indications Unstable Left Ankle fracture with widening of medial joint space Findings Unstable Left Ankle bimalleolar fracture with no evidence of syndesmotic instability on stress testing after fracture fixation. Description of Procedure After obtaining consent with regards to the above mentioned procedure which is a left ankle open reduction internal fixation, left ankle was marked in the holding area with my initials. The patient was advised of the risks benefits alternatives and complications of this procedure and she agreed to proceed. The risks include but are not limited to infection nerve or blood vessel injury DVT nonunion malunion resulting in posttraumatic arthritis as well as hardware irritation that may require hardware removal with the patient agreed to proceed. The patient was then brought to the operative room placed in the supine position at which time she underwent general anesthesia. The left lower extremity was then prepped and draped in a standard sterile fashion. A proximal thigh tourniquet was used. Live fluoroscopy was used for the entire procedure to verify positioning of all of the screws as well as reduction of fracture site both AP and lateral views. A time-out was performed in order to verify correct patient correct site of surgery correct surgery as well as administration of antibiotics IV within 1 hour of incision time. The lateral incision was made over the distal fibula dissection was carried down making sure to avoid the superficial peroneal nerve and I easily identified the fracture site. The fracture site was cleared of the fracture hematoma with debridement as well as with irrigation I then obtain anatomic reduction with 2 reduction clamps and placed a interfragmentary screw. I then proceeded to place a lateral plate and placed multiple screws distal to the fracture site as well as proximal to the fracture site. Fluoroscopy was used to verify that indeed reduction was obtained as well as no evidence of widening of the medial joint space in the medial joint space was restored. I did stress testing with fluoroscopy to verify that indeed there was no widening of joint space with stressing of the medial ankle ligaments. Incision site was then irrigated copiously and then injected with local anesthetic in the dermal tissues and closed the skin using 2-0 Vicryl suture interrupted fashion in the dermal layer. I then used a running nylon suture to close the skin. It was then bandaged in sterile fashion she was placed in a posterior splint and then transferred to recovery room in stable condition. At the end of the procedure a short-leg posterior splint with a posterior component as well as a medial collateral component was placed with the ankle in the neutral position. The patient was specifically instructed to take 81 mg of aspirin twice a day to help with preventing blood clots she was instructed to be strict nonweightbearing on this extremity to place ice and elevated and I will see her back in about 10 days [employer] [place] Estimated Blood Loss 10 Tourniquet Time Total Tourniquet Time: 60 minutes Drains No Packing No Pathology None sent Complications No immediate complications Condition Stable Disposition PACU
[2025-01-29] MEDS: fentaNYL CITRATE INJ (*CRX) 100 MCG/2 ML VIAL 25 MCG IV PUSH ×2 (10:35→10:38)
[2025-01-29] MEDS: ONDANSETRON INJ 4 MG/2 ML VIAL IV PUSH (11:03)
[2025-01-29] MEDS: diphenhydrAMINE HCl INJ 50 MG/ML VIAL 12.5 MG IV PUSH (11:29)
[2025-01-29] MEDS: SCOPOLAMINE 1 MG PATCH 1 PATCH TRANSDERM (11:30)
== END 2025-01-29 11:54 | disposition home or self-care (01) ==
PROVIDERS: PCP Family Medicine; Visit Provider Orthopaedic Surgery
PROC: (CPT 27814; principal; 2025-01-29 10:30)
DX: S82.842A Displaced bimalleolar fracture of left lower leg, initial encounter for closed fracture (principal); W19.XXXA Unspecified fall, initial encounter; F12.90 Cannabis use, unspecified, uncomplicated
CPT/HCPCS: 27814; 99199; A9270; C1713; J0690; J1100; J1200; J1885; J2003; J2004; J2250; J2405; J2704; J3010; J3370; J7120